=== PATIENT | male | born 1970 | race Caucasian/White ===

== ENCOUNTER → 2018-10-23 | Outpatient (CLI) | payer SELFPAY ==
[~2018-10-23] MED LIST: REGADENOSON 0.4 MG/5 ML DISP.SYRIN. IV ONE
--- NOTE | 2018-10-23 12:24 | RAD ---
MR#: [id number] Date of Study: 10/23/2018 Ordering Physician: JESSE KATE, Referring Physician: KHRIS FUNK Tech: RT Stephanie (R) (N) APPROVED REPORT Test Type: Pharmacological Stress Nurse/Tech: Aure Abel R.N. Test Indications: htn Cardiac History: htn,smoker, family hx Medications: See Electronic Medical Record Medical History: See Electronic Medical Record Resting ECG: SB w/slight ST elevation in leads II,AVF, V3,V4 Resting Heart Rate: 52. bpm Resting Blood Pressure: 126/79mmHg Pretest Chest Pain: No chest pain Nurse/Tech Notes S1S2, lungs CTA Consent: The procedure was explained to the patient in lay terms. Informed consent was witnessed. Jordy eout was entered into [employer]. History and Stress Test performed by [facility] Details Pharmacologic stress testing was performed using 0.4mg per 5ml of regadenoson given intravenously ove r 7-10 seconds. Stress Symptoms SOB, nausea, flushed, h/a POST EXERCISE Reason for Termination: Infusion complete Max HR: 105 bpm Max Blood Pressure: 146/69mmHg Blood Pressure response to exercise: Normal blood pressure response during stress. Heart Rate response to exercise: wnl Chest Pain: No. Arrhythmia: No. ST Change: No. no change from above noted abnormal baseline INTERPRETATION Stress EKG Conclusion: No evidence of stress induced EKG changes Imaging Protocol IMAGE PROTOCOL: Rest Tc-99m/stress Tc-99m 1 day Rest: Stress: Viability: Radiopharm.Tc99m WyjguprgzIh54c Sestamibi Ozlm75uWk 33mCi Duration 15min. 15min. Img Date 10/23/2018 10/23/2018 Inj-Img Pulc21kze. 60min. Rest Admin Site:IV - Right AntecubitalAdministrator:RT Stephanie (R)(N) Stress Admin Site: IV - Right AntecubitalAdministrator: [facility] STRESS DATA End Diast. Vol.106.0mlLVEDV index BSA58.0ml End Syst. Vol.49.0mlLVESV index BSA27.0ml Myocardial Iqqc673.0gEject. Thvekhxu42.0% Stress Scores Regional WT2.00Summed WT17.00 Regional WM0.00Summed WM10.00 The rest and stress images show normal perfusion, normal contraction and thickening. LV Perf. Quant 17 Seg. SSS0.00 17 Seg. SRS0.00 17 Seg. SDS0.00 Stress Defect Extent (% LAD)0.00Rest Defect Extent (% LAD)0.00Rev. Defect Extent (% LAD)0.00 Stress Defect Extent (% LCX) 0.00Rest Defect Extent (% LCX)0.00Rev. Defect Extent (% LCX)0.00 Stress Defect Extent (% RCA)0.00Rest Defect Extent (% RCA)0.00Rev. Defect Extent (% RCA)0.00 Stress Defect Extent (% ZACHARIAH)0.00Rest Defect Extent (% ZACHARIAH)0.00Rev. Defect Extent (% ZACHARIAH)0.00 Other Information Quality:Good Risk Assessment: Low Risk Conclusion 1. No evidence of EKG changes with stress testing. 2. Normal perfusion at stress/rest. 3. Low risk study. 4. EF 55 %. Signed by : Zi Sharma, Electronically Approved : 10/23/2018 12:23:19
--- NOTE | 2018-10-23 13:56 | CARD ---
MR#: [id number] Date of Study: 10/23/2018 Ordering Physician: YAMILE HOWARD, Referring Physician: YAMILE HOWARD, Tech: Peg Crawford APPROVED REPORT EXAM: Two-dimensional and M-mode echocardiogram with Doppler and color Doppler. Other Information Quality : AverageHR: 52bpm Technically limited study due to smoking. INDICATION Hypertension/HCVD RISK FACTORS Smoking 2D DIMENSIONS RVDd2.3 (2.9-3.5cm)Left Atrium(2D)2.5 (1.6-4.0cm) IVSd1.0 (0.7-1.1cm)Aortic Root(2D)3.0 (2.0-3.7cm) LVDd4.7 (3.9-5.9cm)LVOT Diameter2.0 (1.8-2.4cm) PWd0.8 (0.7-1.1cm)LVDs3.4 (2.5-4.0cm) FS (%) 28.1 %SV55.9 ml LVEF(%)54.3 (>50%) Aortic Valve AoV Peak Rodolfo.132.4cm/sAoV VTI28.1cm AO Peak GR.7.0mmHgLVOT Peak Rodolfo.77.8cm/s LVOT VTI 17.18cmAO Mean GR.4mmHg LAXMI (VMAX)1.88we7QLX (VTI)1.86cm2 Mitral Valve MV E Oroojcvs83.8cm/sMV DECEL CZXL709qq MV A Bcqwrihq40.0cm/sMV WEL32wa E/A Ratio1.6MVA (PHT)4.02cm2 TDI E/Lateral E'7.5E/Medial E'7.1 Pulmonary Valve PV Peak Ywmymifg76.3cm/sPV Peak Grad.3mmHg Tricuspid Valve TR P. Yiofiuly831zf/sRAP WSLPZNWK3ydNh TR Peak Gr.89mfXzOSNQ15lmGw Pulmonary Vein S1 Frrytanm52.8cm/sD2 Vclhvavg60.3cm/s PVa [id number] LEFT VENTRICLE The left ventricle is normal size. There is borderline concentric left ventricular hypertrophy. The l eft ventricular systolic function is normal. The Ejection Fraction is 55%. There is normal LV segment al wall motion. The left ventricular diastolic function and filling is normal for age. RIGHT VENTRICLE The right ventricle is normal size. There is normal right ventricular wall thickness. The right ventr icular systolic function is normal. ATRIA The left atrium size is normal. The right atrium size is normal. The interatrial septum is intact wit h no evidence for an atrial septal defect or patent foramen ovale as noted on 2-D or Doppler imaging. AORTIC VALVE The aortic valve is normal in structure and function. Doppler and Color Flow revealed no significant aortic regurgitation. There is no significant aortic valvular stenosis. MITRAL VALVE The mitral valve is normal in structure and function. There is no evidence of mitral valve prolapse. There is no mitral valve stenosis. Doppler and Color-flow revealed trace mitral regurgitation. TRICUSPID VALVE The tricuspid valve is normal in structure and function. Doppler and Color Flow revealed trace tricus pid regurgitation with an estimated PAP of 33 mmHg. There is no tricuspid valve stenosis. PULMONIC VALVE The pulmonic valve is not well visualized. Doppler and Color Flow revealed no pulmonic valvular regur gitation. GREAT VESSELS The aortic root is normal in size. The IVC is normal in size and collapses >50% with inspiration. PERICARDIAL EFFUSION There is no evidence of significant pericardial effusion. Critical Notification Critical Value: No <Conclusion> The left ventricular systolic function is normal. The Ejection Fraction is 55%. There is normal LV segmental wall motion. Trace mitral regurgitation. Trace tricuspid regurgitation with an estimated PAP of 33 mmHg. There is no evidence of significant pericardial effusion. Signed by : Yamile Howard, Electronically Approved : 10/23/2018 13:56:00
== END | disposition home or self-care (01) ==
LOC: NM 08:51
PROVIDERS: ATTEND Internal Medicine Cardiovascular Disease
DX: I10 Essential (primary) hypertension (principal); R06.02 Shortness of breath; R11.0 Nausea; Z87.891 Personal history of nicotine dependence; Z86.79 Personal history of other diseases of the circulatory system; Z82.49 Family history of ischemic heart disease and other diseases of the circulatory system; Z79.01 Long term (current) use of anticoagulants
CPT/HCPCS: 78452; 93017; 93306; A9500; J2785